=== PATIENT | female | born 1990 | race Caucasian/White ===

== ENCOUNTER 2024-01-04 18:39 | Emergency (ER) | payer BC | END 2024-01-04 21:00 | disposition home or self-care (01) | LOC: JP.ED 18:39 | DX: S42.432A Displaced fracture (avulsion) of lateral epicondyle of left humerus, initial encounter for closed fracture (principal); W01.0XXA Fall on same level from slipping, tripping and stumbling without subsequent striking against object, initial encounter | CPT/HCPCS: 29105; 73080-LT; 99283-25; 99284 ==